=== PATIENT | female | born 1975 | race Caucasian/White ===

== ENCOUNTER 2020-09-14 08:32 | Outpatient (CLI) | payer BC | END 2020-09-14 08:54 | disposition home or self-care (01) | LOC: LAB 08:32 | PROVIDERS: ATTEND General Practice | DX: J11.1 Influenza due to unidentified influenza virus with other respiratory manifestations (principal); Z20.828 Contact with and (suspected) exposure to other viral communicable diseases; R05 Cough; Z11.59 Encounter for screening for other viral diseases; R53.81 Other malaise ==

== ENCOUNTER 2020-09-14 09:47 | Outpatient (CLI) | payer BC | END 2020-09-14 09:58 | disposition home or self-care (01) | LOC: RAD 09:47 | PROVIDERS: ATTEND General Practice | DX: R05 Cough (principal); Z11.59 Encounter for screening for other viral diseases; Z20.828 Contact with and (suspected) exposure to other viral communicable diseases ==

== ENCOUNTER 2021-04-10 11:34 | Outpatient (CLI) | payer BC | END 2021-04-10 12:00 | disposition home or self-care (01) | LOC: MAMO-SONO 11:34 | PROVIDERS: ATTEND Obstetrics & Gynecology | DX: E03.8 Other specified hypothyroidism (principal); N64.59 Other signs and symptoms in breast; Z12.31 Encounter for screening mammogram for malignant neoplasm of breast; Z87.898 Personal history of other specified conditions ==

== ENCOUNTER 2022-08-25 14:05 | Outpatient (CLI) | payer BC | END 2022-08-25 14:09 | disposition home or self-care (01) | LOC: SONOGRAMA 14:05 | PROVIDERS: ATTEND Internal Medicine | DX: E03.9 Hypothyroidism, unspecified (principal) ==

== ENCOUNTER 2023-12-29 13:30 | Emergency (ER) | payer BC ==
[~2023-12-29] VITALS: Ht 160 cm; Wt 95.7 kg
[2023-12-29] MEDS ORDERED: ADDERALL 15 MG15 MG PO (15:12)
[2023-12-29 17:13] LABS: URINE APPEARANCE Clear; URINE BILIRRUBIN Negative (NEGATIVE); URINE BLOOD Negative; URINE COLOR Yellow; URINE GLUCOSE Negative (NEGATIVE); URINE LEUKOCYTE Trace; URINE NITRATE Negative; URINE PROTEIN Negative (NEGATIVE); URINE UROBILINOGEN 0.2 E.U./dl
[2023-12-29 17:15] LABS: HEMATOCRIT 38.5 % (36.0-45.00); HEMOGLOBIN 13.3 g/dL (12.0-15.00); MEAN CORPUSCULAR HEMOGLOBIN 30.7 pg (27.00-32.0); MEAN CORPUSCULAR HGB CONC 34.6 g/dl (32.0-36.0); PLATELET COUNT 372 K/uL (150-450); RED BLOOD COUNT 4.33 M/uL (4.00-6.00); RED CELL DISTRIBUTION WIDTH 14.2 % (11.5-14.5)
[2023-12-29 17:16] LABS: URINE BACTERIA 1000.3 uL (0.0-1933); URINE EPITHELIAL CELLS 30.5 uL (0.0-38.8); URINE RBC 15.9 uL (0.0-20.8)
[2023-12-29] MEDS ORDERED: DIPHENHYDRAMINE HCL 50 MG/ML VIAL 1ML IM STA (17:17)
[2023-12-29 17:59] LABS: ALBUMIN 3.6 gm/dL (3.4-5.0); BILIRUBIN TOTAL 0.24 mg/dL (0.3-1.2); CALCIUM 9.1 mg/dL (8.5-10.1); CREATININE SERUM 0.64 mg/dL (0.55-1.02); GFR 99.47; POTASSIUM 3.68 mEq/L (3.5-5.1); TOTAL PROTEIN 7.6 gm/dL (6.4-8.2)
[2023-12-29] MEDS ORDERED: KETOROLAC TROMETHAMINE 30 MG VIAL IM STA (20:04)
== END 2023-12-29 20:23 | disposition home or self-care (01) ==
LOC: ER 13:31
PROVIDERS: General Practice
DX: L25.9 Unspecified contact dermatitis, unspecified cause (principal); M54.89 Other dorsalgia; I10 Essential (primary) hypertension; E06.3 Autoimmune thyroiditis; Z88.0 Allergy status to penicillin; Z88.2 Allergy status to sulfonamides; Z88.8 Allergy status to other drugs, medicaments and biological substances

== ENCOUNTER 2024-01-18 11:43 | Outpatient (CLI) | payer BC ==
[~2024-01-18 11:43] MED LIST: ADDERALL 15 MG15 MG PO
== END 2024-01-18 12:02 | disposition home or self-care (01) ==
LOC: MAMO-SONO 11:43
PROVIDERS: ATTEND Obstetrics & Gynecology
DX: R10.2 Pelvic and perineal pain (principal); E03.9 Hypothyroidism, unspecified; N63.0 Unspecified lump in unspecified breast; N64.4 Mastodynia; M54.2 Cervicalgia

== ENCOUNTER 2025-03-22 19:23 | Emergency (ER) | payer BC ==
[~2025-03-22] VITALS: Ht 162.6 cm; Wt 89.8 kg
[2025-03-22 19:35] VITALS: BP 148/91; O2SAT 97
== END 2025-03-22 22:00 | disposition home or self-care (01) ==
LOC: ER 20:50
DX: S00.93XA Contusion of unspecified part of head, initial encounter (principal); X58.XXXA Exposure to other specified factors, initial encounter; Y93.89 Activity, other specified; Y92.89 Other specified places as the place of occurrence of the external cause; Y99.9 Unspecified external cause status; Z88.0 Allergy status to penicillin; Z88.2 Allergy status to sulfonamides; Z88.8 Allergy status to other drugs, medicaments and biological substances

== ENCOUNTER 2025-06-19 10:40 | Outpatient (CLI) | payer BC | END 2025-06-19 10:57 | disposition home or self-care (01) | LOC: MAMO-SONO 10:40 | PROVIDERS: ATTEND Obstetrics & Gynecology | DX: R10.30 Lower abdominal pain, unspecified (principal); R10.2 Pelvic and perineal pain; N81.89 Other female genital prolapse; N95.9 Unspecified menopausal and perimenopausal disorder; D64.9 Anemia, unspecified; N93.9 Abnormal uterine and vaginal bleeding, unspecified; E03.9 Hypothyroidism, unspecified; N60.11 Diffuse cystic mastopathy of right breast; N60.12 Diffuse cystic mastopathy of left breast; N94.89 Other specified conditions associated with female genital organs and menstrual cycle; N80.30 Endometriosis of pelvic peritoneum, unspecified ==